=== PATIENT | female | born 1945 | race Caucasian/White ===

== ENCOUNTER → 2019-06-14 | Outpatient (CLI) | payer MEDICARE, OTHER ==
[~2019-06-14] MED LIST: APIX5TAB PO; ASPI-496 PO; BIEST PO; CHOL10003 PO; FLEC100T PO; LEVO112T4 PO; LOSA100T14 PO; OMNIPAQUE 350 MG/ML, 150 ML BOTTLE ONE; PROGESTERONE PO; SIMV40TA20 PO
== END | disposition home or self-care (01) ==
LOC: CFH 11:54
PROVIDERS: ATTEND Internal Medicine Cardiovascular Disease
DX: I48.91 Unspecified atrial fibrillation (principal); M41.85 Other forms of scoliosis, thoracolumbar region
CPT/HCPCS: 75572; Q9967

== ENCOUNTER 2019-06-15 06:23 | Observation (INO) | payer MEDICARE, OTHER ==
[2019-06-14 14:18] VITALS: BP 135/60
[~2019-06-15] VITALS: Ht 154.9 cm; Wt 76.6 kg
[2019-06-15] MEDS: LEVOTHYROXINE 112 MCG TABLET PO SCH (06:00)
[~2019-06-15 06:23] MED LIST changes: -APIX5TAB PO; -BIEST PO; -OMNIPAQUE 350 MG/ML, 150 ML BOTTLE ONE; -PROGESTERONE PO
[2019-06-15] MEDS ORDERED: SODIUM CHLORIDE 0.9% 1,000 ML IV SCH (06:42)
[2019-06-15] MEDS ORDERED: BIEST PO (06:59)
[2019-06-15] MEDS ORDERED: PROGESTERONE PO (06:59)
[2019-06-15] MEDS ORDERED: SODIUM CHLORIDE 0.9% 1,000 ML IV ONE (07:00)
[2019-06-15] MEDS ORDERED: FENTANYL PF 250 MCG/5ML ONE (07:56)
[2019-06-15] MEDS ORDERED: PROPOFOL 50 ML ONE (07:56)
[2019-06-15] MEDS ORDERED: MIDAZOLAM 1 MG/ML, 2ML ONE (07:56)
[2019-06-15] MEDS ORDERED: LIDOCAINE 2%, 20ML ONE (08:40)
[2019-06-15] MEDS ORDERED: hydrALAzine 20 MG/ML, 1ML IV PRN (11:00)
[2019-06-15] MEDS ORDERED: OXYcodone 5 MG/5 ML ORAL.SOL UDC PO PRN (11:00)
[2019-06-15] MEDS ORDERED: MORPHINE SULFATE 4 MG/ML, 1ML IVPush PRN (11:00)
[2019-06-15] MEDS ORDERED: ACETAMINOPHEN 325 MG TABLET PO PRN ×2 (11:00→15:00)
[2019-06-15] MEDS ORDERED: EPHEDRINE 50 MG/ML, 1ML IM PRN (11:00)
[2019-06-15] MEDS ORDERED: DIAZEPAM 5 MG/ML, 2ML IVPush PRN (11:00)
[2019-06-15] MEDS ORDERED: ONDANSETRON 2MG/ML, 2ML IV PRN (11:00)
[2019-06-15] MEDS ORDERED: PROMETHAZINE 25 MG/ML, 1ML IV PRN (11:00)
[2019-06-15] MEDS ORDERED: DIPHENHYDRAMINE 50 MG/ML, 1ML IVPush PRN (11:00)
[2019-06-15] MEDS ORDERED: ONDANSETRON ODT 8 MG PO PRN (11:00)
[2019-06-15] MEDS ORDERED: APIXABAN 5 MG TABLET ONE (11:41)
[2019-06-15] MEDS ORDERED: FENTANYL PF 100 MCG/2ML ONE (11:41)
[2019-06-15] MEDS ORDERED: OXYcodone 5 MG/5 ML ORAL.SOL UDC ONE (11:42)
[2019-06-15] MEDS: FENTANYL PF 100 MCG/2ML IV PRN ×2 (11:47→11:57)
[2019-06-15] MEDS: APIXABAN 5 MG TABLET PO SCH ×2 (11:49→21:00)
[2019-06-15 13:07] VITALS: BP 131/72
[2019-06-15] MEDS ORDERED: ONDANSETRON 2MG/ML, 2ML ONE (14:27)
[2019-06-15] MEDS ORDERED: DEXAMETHASONE 4 MG/ML, 1ML ONE (14:27)
[2019-06-15] MEDS ORDERED: SUCCINYLCHOLINE 20 MG/ML, 10ML ONE (14:27)
[2019-06-15] MEDS ORDERED: PROPOFOL 10 MG/ML, 20ML ONE (14:27)
[2019-06-15] MEDS ORDERED: ROCURONIUM 10MG/ML,5ML ONE (14:27)
[2019-06-15 20:55] VITALS: BP 115/65
[2019-06-15] MEDS: LOSARTAN 100 MG TAB PO SCH (20:59)
[2019-06-15] MEDS ORDERED: SIMVASTATIN 40 MG TABLET PO SCH (21:00)
[2019-06-16 00:54] VITALS: BP 99/51
[2019-06-16] MEDS: LEVOTHYROXINE 112 MCG TABLET PO SCH (06:08)
[2019-06-16 07:00] VITALS: BP 106/61
[2019-06-16] MEDS ORDERED: CHOLECALCIFEROL 1,000 UNIT TABLET PO SCH (09:00)
[2019-06-16] MEDS ORDERED: FLECAINIDE 100MG TABLET PO SCH (09:00)
[2019-06-16] MEDS: APIXABAN 5 MG TABLET PO SCH (09:09)
[2019-06-16] MEDS: LOSARTAN 100 MG TAB PO SCH (09:09)
[2019-06-16] MEDS ORDERED: APIX5TAB PO (12:35)
[2019-06-16 13:25] VITALS: BP 147/67
== END 2019-06-16 15:19 | disposition home or self-care (01) ==
LOC: CACL 06:23 → ORIP 11:32 → 5SO 12:46 → DCLOUNGE 06-16 15:00
PROVIDERS: ADMIT Internal Medicine Cardiovascular Disease; ATTEND Internal Medicine Cardiovascular Disease
DX: I48.91 Unspecified atrial fibrillation (principal); E78.5 Hyperlipidemia, unspecified; I10 Essential (primary) hypertension; Z79.01 Long term (current) use of anticoagulants; Z79.899 Other long term (current) drug therapy; Z87.891 Personal history of nicotine dependence; Z79.82 Long term (current) use of aspirin
CPT/HCPCS: 85347; 93306; 93312; 93321; 93325; 93613; 93656; 93662; C1730; C1732; C1759; C1766; C1893; C1894; G0378; J0330; J1100; J2250; J2405; J2704; J3010; J3490